=== PATIENT | female | born 1975 | race Caucasian/White ===

== ENCOUNTER 2019-11-17 17:01 | Emergency (ER) | payer BC ==
[~2019-11-17] VITALS: Ht 157.5 cm; Wt 63.5 kg
[2019-11-17] MEDS ORDERED: LIDOCAINE HCL 2% 20 ML VIAL TP ONE (17:30)
[2019-11-17] MEDS ORDERED: TDAP DIPH,PERTUSS,TET VAC/PF 0.5 ML DISP.SYRIN IM ONE ×2 (17:30→17:32)
--- NOTE | 2019-11-17 17:48 | NUR ---
PT WAS EVALUATED BY DR REID. PT WASD/C'd TO HOME. D/C INSTRUCTIONSGIVEN TO THE PT.
[2019-11-17 17:49] VITALS: BP 125/78
[2019-11-17] MEDS ORDERED: LIDOCAINE HCL 2% 20 ML VIAL ONE (17:54)
== END 2019-11-17 17:54 | disposition home or self-care (01) ==
LOC: ER 17:09
DX: S61.217A Laceration without foreign body of left little finger without damage to nail, initial encounter (principal); W27.8XXA Contact with other nonpowered hand tool, initial encounter; Y93.G9 Activity, other involving cooking and grilling; Y92.89 Other specified places as the place of occurrence of the external cause; Z83.3 Family history of diabetes mellitus; Z82.49 Family history of ischemic heart disease and other diseases of the circulatory system
CPT/HCPCS: 12001; 90471; 90715; 99283; J3490; A4217; A4663; J2001

== ENCOUNTER 2019-11-19 09:03 | Emergency (ER) | payer BC ==
[~2019-11-19] VITALS: Ht 157.5 cm; Wt 63.5 kg
--- NOTE | 2019-11-19 09:30 | NUR ---
triple antibiotic and bandaid followed by aluminum finger splint.
[2019-11-19] MEDS ORDERED: NEOMY/BACITRA/POLYMYXIN B OINT UD PACKET TP ONE ×2 (09:33→09:45)
--- NOTE | 2019-11-19 09:36 | NUR ---
Patient discharged to home in stable condition. Written and verbal after care instructions given. Patient verbalizes understanding of instructions. Stressed follow up or return to ER for worsening s/s.
== END 2019-11-19 09:45 | disposition home or self-care (01) ==
LOC: ER 09:05
DX: S61.217D Laceration without foreign body of left little finger without damage to nail, subsequent encounter (principal); W27.8XXD Contact with other nonpowered hand tool, subsequent encounter
CPT/HCPCS: A4663

== ENCOUNTER 2019-11-26 09:28 | Emergency (ER) | payer BC ==
[~2019-11-26] VITALS: Ht 157.5 cm; Wt 63.5 kg
--- NOTE | 2019-11-26 09:30 | NUR ---
Dr. Yoo at bedside for MSE / suture removal
--- NOTE | 2019-11-26 09:40 | NUR ---
Patient discharged to home in stable condition. Written and verbal after care instructions given. Patient verbalizes understanding of instructions. Stressed follow up or return to ER for worsening s/s. Patient ambulating with steady gait. NAD noted. no s/s of bleeding noted on left 5th digit
[2019-11-26 09:42] VITALS: BP 116/73
== END 2019-11-26 09:40 | disposition home or self-care (01) ==
LOC: ER 09:30
DX: S61.217D Laceration without foreign body of left little finger without damage to nail, subsequent encounter (principal); W45.8XXD Other foreign body or object entering through skin, subsequent encounter
CPT/HCPCS: A4663

== ENCOUNTER 2019-12-22 09:57 | Emergency (ER) | payer BC ==
[~2019-12-22] VITALS: Ht 157.5 cm; Wt 63.5 kg
--- NOTE | 2019-12-22 10:22 | NUR ---
PT WAS EVALUATED BY DR STEVE. PT WAS D/C'd TO HOME. D/C INSTRUCTIONS GIVEN TO THE PT BY DR STEVE.
[2019-12-22 10:23] VITALS: BP 128/72
== END 2019-12-22 10:23 | disposition home or self-care (01) ==
LOC: ER 09:57
DX: S90.121A Contusion of right lesser toe(s) without damage to nail, initial encounter (principal); X58.XXXA Exposure to other specified factors, initial encounter; Y92.89 Other specified places as the place of occurrence of the external cause; Z83.3 Family history of diabetes mellitus; Z82.49 Family history of ischemic heart disease and other diseases of the circulatory system; K21.9 Gastro-esophageal reflux disease without esophagitis
CPT/HCPCS: A4663